=== PATIENT | female | born 2000 | race Caucasian/White ===

== ENCOUNTER 2021-07-24 08:03 | Emergency (ER) | payer MEDICAID, SELFPAY ==
[2021-07-24 08:04] VITALS: BP 153/74; PULSE 65; RESP 18; TEMP 37; O2SAT 96; BMI 49.8
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
--- NOTE | 2021-07-24 08:27 | CT_ITS ---
STUDY: CT CERVICAL SPINE WITHOUT CONTRAST REASON FOR EXAM: Female, 21 years old. Injury/Pain RADIATION DOSAGE (If Supplied By Facility): CTDIvol = ( 30.48 ) mGy, DLP = ( 675.56 ) mGycm TECHNIQUE: High resolution transaxial imaging was performed without contrast material. Sagittal and coronal images were reconstructed. Individualized dose optimization techniques were used for this CT. COMPARISON: None FINDINGS: Normal craniovertebral junction. Normal anterior atlantoaxial articulation. Normal odontoid process. There is straightening of the normal cervical lordosis. Normal vertebral bodies and posterior osseous elements. C2-3: Normal endplates. Normal disc height and morphology. Normal central canal and intervertebral neuroforamina. C3-4: Normal endplates. Normal disc height and morphology. Normal central canal and intervertebral neuroforamina. C4-5: Normal endplates. Normal disc height and morphology. Normal central canal and intervertebral neuroforamina. C5-6: Normal endplates. Normal disc height and morphology. Normal central canal and intervertebral neuroforamina. C6-7: Normal endplates. Normal disc height and morphology. Normal central canal and intervertebral neuroforamina. C7-T1: Normal endplates. Normal disc height and morphology. Normal central canal and intervertebral neuroforamina. Normal visualized soft tissue structures. CT/Spine Cervical without Contras IMPRESSION: Straightening of the normal cervical lordosis. Electronically Signed: Demond Barnhart MD at 9:11 EST , Service support ,
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
[2021-07-24] MEDS: Ondansetron ODT 4 MG Tablet PO (08:37)
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
[2021-07-24] MEDS: Acetaminophen 500 MG Tablet 1000 MG PO (09:06)
== END 2021-07-24 10:45 | disposition home or self-care (01) ==
PROVIDERS: Emergency Provider Emergency Medicine
DX: S16.1XXA Strain of muscle, fascia and tendon at neck level, initial encounter (principal); S09.90XA Unspecified injury of head, initial encounter; M54.50 Low back pain, unspecified; V47.5XXA Car driver injured in collision with fixed or stationary object in traffic accident, initial encounter; Y93.9 Activity, unspecified; Y92.9 Unspecified place or not applicable
CPT/HCPCS: 70450; 72100; 72125; 99284

== ENCOUNTER → 2024-05-30 | Outpatient (CLI) | payer MEDICAID, SELFPAY ==
[2024-05-30 07:47] LABS: Absolute Lymphocyte Count 2.63 X10^3/uL (0.83-4.51); Absolute Neutrophil Count 4.3 X10^3/uL (2.0-7.7); Basophil# 0.08 X10^3/uL; Eosinophils% 3.8 % (0-5); Hematocrit 37.1 % (37-47); Hemoglobin 11.8 g/dL (12.0-15.0); Lymphocyte # 2.63 X10^3/ul (0.83-4.51); Lymphocyte % 33.3 % (19-41); Mean Corp Hgb Conc 31.8 g/dL (32-36); Mean Corpuscular Hgb 27.8 pg (27.0-32.0); Mean Corpuscular Volume 87.5 fL (81-99); Mean Platelet Vol. 9.8 fl (6.2-12.0); Monocyte# 0.59 X10^3/uL; Monocyte% 7.5 % (0-10); NRBC Flagged by Analyzer 0 % (0-5); Neutrophil # 4.26 X10^3/uL (2.7-7.7); Neutrophil % 53.9 % (47-70); Platelet Count 341 K/mm3 (150-450); RBC Distribution Width CV 12.6 % (11.6-14.6); RBC Distribution Width SD 40.1 fl (35.1-43.9); Red Blood Count 4.24 M/mm3 (4.2-5.4); White Blood Count 7.9 K/mm3 (4.4-11.0)
[2024-05-30 09:34] LABS: Hemoglobin A1c 4.8 % (3.8-5.6)
[2024-05-30 11:28] LABS: ALB/GLOB Ratio 0.8 RATIO (0.9-2.4); AST(SGOT) 13 U/L (15-37); Alanine Aminotransfer ALT/SGPT 14 U/L (13-56); Albumin, Serum 3.1 g/dL (3.2-5.0); Alkaline Phosphatase 58 U/L (45-117); Anion Gap 7 (5-15); BUN 8 mg/dL (7-18); BUN/Creat Ratio 13.3 RATIO (10-20); Calcium,Total 9.1 mg/dL (8.5-10.1); Chloride 109 mmol/L (98-107); EST Glomerular Filtration Rate 131 mL/min (>60); Est Glom Filt Rate - Afr Amer 159 mL/min (>60); Ferritin 34 ng/mL (8-252); Globulin 4.1 g/dL (2.2-4.2); Glucose 89 mg/dL (74-106); Iron 67 ug/dL (50-170); Potassium 4.2 mmol/L (3.5-5.1); Protein, Total 7.2 g/dL (6.4-8.2); Sodium Level 137 mmol/L (136-145); T4 Free Direct 0.97 ng/dL (0.76-1.46)
[2024-06-01 08:37] LABS: Vitamin B12 270 pg/mL (211-911); Vitamin D,25 Hydroxy 14.3 ng/mL
== END | disposition home or self-care (01) ==
LOC: LAB 07:16
PROVIDERS: PCP Nurse Practitioner Family; Referring Provider Nurse Practitioner Family; Visit Provider Nurse Practitioner Family
DX: R42 Dizziness and giddiness (principal); R25.1 Tremor, unspecified; R53.83 Other fatigue
CPT/HCPCS: 36415; 80053; 82306; 82607; 82728; 83036; 83540; 84439; 84443; 85025

== ENCOUNTER → 2024-06-16 | Outpatient (CLI) | payer MEDICAID, SELFPAY ==
--- NOTE | 2024-06-16 09:52 | ECHOD_ITS ---
Reason For Study: Palpitations Procedure This was a 2D Doppler, Color Flow transthoracic echocardiogram. The study was technically difficult. Exam performed in department. Left Ventricle Normal LV size. Left ventricular systolic function is normal. The left ventricular ejection fraction is 60 %. No regional wall motion abnormalities noted. Right Ventricle Normal RV size. Normal systolic function. Atria Normal left atrium. Normal right atrium. Mitral Valve Normal mitral valve. Tricuspid Valve Normal tricuspid valve. Mild tricuspid valve insufficiency. Aortic Valve Trisinus/trileaflet aortic valve. Pulmonic Valve Normal pulmonic valve. Great Vessels Normal aortic root. The pulmonary artery is normal size. Normal inferior vena cava. Pericardium/Pleural No pericardial effusion. Medication Bubble study and Definity deferred due to unknown . MMode/2D Measurements & Calculations LVIDd: 5.5 cm IVSd: 1.2 cm LVOT diam: 2.2 cm LVIDs: 3.6 cm LVPWd: 0.94 cm RVDd: 4.2 cm FS: 35.3 % LVOT area: 3.6 cm2 Ao root diam: 2.8 cm asc Aorta Diam: 2.7 cm LAV(MOD-bp): 47.1 ml LA dimension: 3.7 cm LAV(MOD-bp) Indexed: 22.5 ml/m2 LAV(MOD-sp2): 37.6 ml LAV(MOD-sp4): 46.5 ml TAPSE: 2.0 cm LA A4 area: 17.4 cm2 RA A4 area: 11.5 cm2 Time Measurements MV dec time: 0.17 sec Doppler Measurements & Calculations MV E max alfredo: 82.6 cm/sec Lat Peak E' Alfredo: 15.0 cm/sec Med Peak E' Alfredo: 11.4 cm/sec MV A max alfredo: 49.5 cm/sec E/E' lat: 5.5 E/E' med: 7.2 MV E/A: 1.7 MV V2 max: 95.4 cm/sec MV P1/2t max alfredo: 98.2 cm/sec Ao V2 max: 115.2 cm/sec MV max P.6 mmHg MV P1/2t: 70.5 msec Ao max P.3 mmHg MV V2 mean: 46.7 cm/sec MV dec slope: 407.8 cm/sec2 Ao V2 mean: 82.7 cm/sec MV mean P.1 mmHg Ao mean P.1 mmHg MV V2 VTI: 30.7 cm MVA(P1/2t): 3.1 cm2 Ao V2 VTI: 24.6 cm MVA(VTI): 2.6 cm2 AV (velocity ratio): 0.90 VICKY(I,D): 3.3 cm2 VICKY(V,D): 3.2 cm2 LV V1 max: 102.9 cm/sec SV(LVOT): 80.3 ml PA V2 max: 106.1 cm/sec LV V1 max P.2 mmHg PA max PG (full): 2.6 mmHg LV V1 mean P.5 mmHg PA V2 mean: 85.1 cm/sec LV V1 mean: 73.8 cm/sec LV V1 VTI: 22.1 cm TR max alfredo: 221.6 cm/sec TR max P.6 mmHg ECHO/Echo Complete Interpretation Summary Normal LV size. Left ventricular systolic function is normal. The left ventricular ejection fraction is 60 %. Structurally normal valves. Ordering Physician: Daren Vera Referring Physician: Daren Vera Performed By: Rodney Solis and Student
== END | disposition home or self-care (01) ==
LOC: CVS 09:48
PROVIDERS: PCP Nurse Practitioner Family; Referring Provider Internal Medicine Cardiovascular Disease; Visit Provider Internal Medicine Cardiovascular Disease
DX: R00.2 Palpitations (principal); R55 Syncope and collapse
CPT/HCPCS: A4216; Q9957; 93306

== ENCOUNTER → 2024-08-17 | Outpatient (CLI) | payer MEDICAID, SELFPAY | END | disposition home or self-care (01) | LOC: LABSPEC 15:50 | PROVIDERS: PCP Nurse Practitioner Family; Referring Provider Otolaryngology Otolaryngology/Facial Plastic Surgery; Visit Provider Otolaryngology Otolaryngology/Facial Plastic Surgery | DX: J02.9 Acute pharyngitis, unspecified (principal) | CPT/HCPCS: 87070 ==

== ENCOUNTER → 2024-09-03 | Outpatient (CLI) | payer MEDICAID, SELFPAY | END | disposition home or self-care (01) | PROVIDERS: PCP Nurse Practitioner Family; Referring Provider Otolaryngology; Visit Provider Otolaryngology | DX: R50.9 Fever, unspecified (principal); R05.9 Cough, unspecified | CPT/HCPCS: 87502 ==

== ENCOUNTER → 2025-03-11 | Outpatient (CLI) | payer MEDICAID, SELFPAY | END | disposition home or self-care (01) | PROVIDERS: PCP Nurse Practitioner Family; Referring Provider Otolaryngology; Visit Provider Otolaryngology | DX: M79.604 Pain in right leg (principal); R60.9 Edema, unspecified | CPT/HCPCS: 93971 ==